=== PATIENT | male | born 1955 | race Caucasian/White ===

== ENCOUNTER → 2016-05-04 | Outpatient (CLI) | payer BC ==
[~2016-05-04] MED LIST: ALFU10TA30 PO; ALLO300T2 PO; ASPI81TA28 PO; ATOR-26 PO; CALC0.2510 PO; CLOP1TAB15 PO; DIOVAN; DVN/160 PO; METO25TA56 PO; NORVASC; NTRGSL/4 UT; OMEG10007 PO
[2016-05-04 09:35] LABS: BASO % 0.4 %; BASO ABS # 0.04 K/uL (0-0.2); COMPLETE YES; EOS % 6.2 %; HEMATOCRIT 43.6 % (42-52); IG% 0.1 %; LYMPH % 15.3 %; LYMPH ABS # 1.46 K/uL (1.2-3.4); MEAN CELL VOLUME 91.8 fL (80-100); MEAN CORPUSCULAR HEMOGLOBIN 31.8 pg (25-34); MEAN CORPUSCULAR HGB CONC 34.6 g/dl (32-36); MEAN PLATELET VOLUME 11.9 fL (7.4-10.4); PLATELET COUNT 219 K/uL (130-400); RED BLOOD COUNT 4.75 M/uL (4.7-6.1); WHITE BLOOD COUNT 9.53 K/uL (4.8-10.8)
[2016-05-04 09:57] LABS: ALT/SGPT 24 U/L (12-78); AST/SGOT 17 U/L (15-37); BLOOD UREA NITROGEN 40 mg/dl (7-18); BUN/CREATININE RATIO 10.6 (10-20); CARBON DIOXIDE 27 mmol/L (21-32); CHLORIDE 104 mmol/L (98-107); CHOLESTEROL 128 mg/dl (0-200); GLUCOSE 91 mg/dl (70-99); POTASSIUM 3.8 mmol/L (3.5-5.1); SODIUM 139 mmol/L (136-145); TRIGLYCERIDES 67 mg/dl (0-150); VERY LOW DENSITY LIPOPROT CALC 13 mg/dl
[2016-05-04 10:05] LABS: ESTIMATED AVERAGE GLUCOSE 114 mg/dl; HA1C FLAG Normal (Normal)
[2016-05-04 10:07] LABS: CHOLESTEROL/HDL RATIO 3.1; HDL CHOLESTEROL 41 mg/dl; LDL CHOLESTEROL CALCULATED 74 mg/dl
[2016-05-04 10:42] LABS: RATIO 1265.2 mcg/mg (0-30.0)
--- NOTE | 2016-05-12 11:33 | CODING QUERY MEDICAL NECESSITY ---
CQSUPPORTING DIAGNOSIS NEEDED A supporting diagnosis is required for the test/procedure performed on this patient in order for us to be reimbursed by the patient's insurance. Please provide a supporting diagnosis for the following test/procedure listed below next to the test name along with your signature. *If there is no additional diagnosis for this patient that would support the following test/procedure please document that below next to the test/procedure. Test(s)/Procedure(s) that require a supporting diagnosis: DOS 05/04/16 GLYCATED HEMOGLOBIN TEST PROSTATE SPECIFIC TEST (PSA) Provider Signature: Date: Thank you Mallory Dhaliwal Health Information Management Once completed, please kindly fax back to [phone] For questions please call [phone]
== END | disposition home or self-care (01) ==
LOC: C.LAB1850 07:12
PROVIDERS: ATTEND Internal Medicine
DX: Z12.5 Encounter for screening for malignant neoplasm of prostate (principal); E78.00 Pure hypercholesterolemia, unspecified; E74.39 Other disorders of intestinal carbohydrate absorption

== ENCOUNTER → 2016-11-15 | Outpatient (CLI) | payer BC, OTHER ==
[~2016-11-15] MED LIST changes: +REGADENOSON 0.4 MG/5 ML SYR ONE
--- NOTE | 2016-11-16 03:18 | MYOCARDIAL PERFUSION SCAN ---
ONE-DAY NUCLEAR MEDICINE TECHNETIUM-99M CARDIOLITE MYOCARDIAL PERFUSION SCAN CLINICAL HISTORY: The patient has a known history of coronary artery disease, having undergone placement of a stent in the LAD in May 2016. This stress test is being performed as a prerenal transplant evaluation. COMPARISON: None. TECHNIQUE: For the stress portion of the study, 32.3 mCi of Technetium 99 m Cardiolite IV was injected at 11:25 a.m. on 11/15/2016. Thirty minutes following the injection, imaging of the heart was performed in multiple projection. For the rest portion of the study, 10.7 mCi of Technetium 99 m Cardiolite was injected IV at 9:40 a.m. One hour following the injection, imaging of the heart was performed in the same projections. For the stress portion of the study, 0.4 mg of Lexiscan was injected intravenously as per protocol. The patient did not experience chest discomfort. Baseline EKG noted normal sinus rhythm without abnormalities. There were no ST segment changes seen during the infusion. Following the study, patient was hemodynamically stable without complaints. FINDINGS: The short axis, vertical long axis, and horizontal long axis images were reviewed in detail. There is normal tracer uptake at both stress and rest. This excludes a prior myocardial infarction and stress induced myocardial ischemia. The left ventricle demonstrates hyperdynamic systolic function without wall motion abnormalities. The left ventricular ejection fraction is 72%. IMPRESSION: 1. No scintigraphic evidence of a prior myocardial infarction or stress induced myocardial ischemia. 2. No Lexiscan induced chest pain. 3. No Lexiscan induced EKG changes. 4. Hyperdynamic left ventricular ejection fraction without wall motion abnormality. Left ventricular ejection fraction is 72%.
== END | disposition home or self-care (01) ==
LOC: C.NUCL 09:07
PROVIDERS: ATTEND Transplant Surgery
DX: N18.4 Chronic kidney disease, stage 4 (severe) (principal)

== ENCOUNTER → 2017-06-14 | Day surgery (SDC) | payer OTHER ==
[2017-06-07 10:41] VITALS: Ht 190.5 cm; Wt 100.0 kg
[~2017-06-14] VITALS: Ht 190.5 cm; Wt 100.0 kg
[~2017-06-14] MED LIST changes: +ALFU10TA2 PO; -ALFU10TA30 PO; +ASPCH81X PO; -ASPI81TA28 PO; -DIOVAN; +LIDOCAINE HCL 2% 2 ML VIAL (20MG/ML) ONE; -NORVASC; +PROPOFOL IV EMULSION 10 MG/ML 20 ML VIAL IV ONE; -REGADENOSON 0.4 MG/5 ML SYR ONE
--- NOTE | 2017-06-14 13:04 | Endo History and Physical ---
History & Physical Date of Service: Jun 14, 2017. Chief Complaint: history of polyps Referring Physician: Dr.Peter Kendrick History of Present Illness For Colonoscopy Past Surgical History Hx Cardiac Surgery: Yes (CARDIAC CATH 1 STENT-06/14/16) Hx Internal Defibrillator: No Hx Pacemaker: No Hx Abdominal Surgery: No Hx of Implantable Prosthesis: No Hx Post-Op Nausea and Vomiting: No Hx Cancer Surgery: Yes (SKIN EXCISION ON BACK) Hx Thoracic Surgery: No Hx Orthopedic: Yes (LEFT EHSAN) Hx Urinary Tract Surgery: No Family History None Social History Smoking Status: Never Smoker Hx Substance Use: No Hx Alcohol Use: No Allergies Coded Allergies: Gluten (Verified Allergy, Unknown, GLUTEN INTOLERANCE-GI UPSET, 06/07/17) NO KNOWN DRUG ALLERGIES (Verified Allergy, Unknown, NONE, 06/07/17) Current Medications Reported Home Medications Medications Dose Route/Sig Max Daily Dose Days Date Category Dose Instructions Aspirin Chewable (Aspirin) 81 Mg Chew 81 Mg PO QAM 06/07/17 Reported Nitrostat (Nitroglycerin) 0.4 Mg Tab 0.4 Mg UT PRN 11/18/16 Reported Diovan (Valsartan) 160 Mg Tab 160 Mg PO QPM 11/18/16 Reported Lopressor (Metoprolol Tartrate) 25 Mg Tab 25 Mg PO HS 11/18/16 Reported [place]-3 (Fish Oil) 1 Ea Cap 1 Cap PO QAM 11/18/16 Reported Plavix (Clopidogrel Bisulfate) 75 Mg Tab 75 Mg PO QAM 11/18/16 Reported Rocaltrol Cap (Calcitriol) 0.25 Mcg Cap 0.25 Mcg PO 5XWEEK 11/18/16 Reported MONDAY THRU MONDAY AM Lipitor (Atorvastatin Calcium) 80 Mg Tab 80 Mg PO HS 11/18/16 Reported Zyloprim (Allopurinol) 300 Mg Tab 300 Mg PO QAM 11/18/16 Reported Uroxatral (Alfuzosin HCl) 10 Mg Tab 10 Mg PO QPM 11/18/16 Reported Vital Signs Weight (Kilograms): 100 Height (Feet): 6 Height (Inches): 3 Date Time Temp Pulse Resp B/P (MAP) Pulse Ox O2 Delivery O2 Flow Rate FiO2 06/14/17 12:17 36.5 65 16 159/87 (111) 99 Room Air Physical Exam General Appearance: WD/WN Respiratory/Chest: Respiratory effort: no dyspnea Cardiovascular: Heart Auscultation: RRR Abdomen: Inspection & Palpation: soft Assessment and Plan Hx of polyps for colonoscopy
--- NOTE | 2017-06-14 13:29 | Discharge Instructions ---
Endoscopy Patient Instructions Date / Procedure(s) Performed Jun 14, 2017. Colonoscopy Allergy Information Coded Allergies: Gluten (Verified Allergy, Unknown, GLUTEN INTOLERANCE-GI UPSET, 06/07/17) NO KNOWN DRUG ALLERGIES (Verified Allergy, Unknown, NONE, 06/07/17) Discharge Date / Findings Jun 14, 2017. Diverticulosis, hemorrhoids Medication Instructions Stopped Medication(s): last dose Plavix monday,last ASA yesterday Restart Stopped Medication(s): Resume meds Reported Home Medications Medications Dose Route/Sig Max Daily Dose Days Date Category Dose Instructions Aspirin Chewable (Aspirin) 81 Mg Chew 81 Mg PO QAM 06/07/17 Reported Nitrostat (Nitroglycerin) 0.4 Mg Tab 0.4 Mg UT PRN 11/18/16 Reported Diovan (Valsartan) 160 Mg Tab 160 Mg PO QPM 11/18/16 Reported Lopressor (Metoprolol Tartrate) 25 Mg Tab 25 Mg PO HS 11/18/16 Reported [place]-3 (Fish Oil) 1 Ea Cap 1 Cap PO QAM 11/18/16 Reported Plavix (Clopidogrel Bisulfate) 75 Mg Tab 75 Mg PO QAM 11/18/16 Reported Rocaltrol Cap (Calcitriol) 0.25 Mcg Cap 0.25 Mcg PO 5XWEEK 11/18/16 Reported MONDAY THRU MONDAY AM Lipitor (Atorvastatin Calcium) 80 Mg Tab 80 Mg PO HS 11/18/16 Reported Zyloprim (Allopurinol) 300 Mg Tab 300 Mg PO QAM 11/18/16 Reported Uroxatral (Alfuzosin HCl) 10 Mg Tab 10 Mg PO QPM 11/18/16 Reported Provider Instructions Activity Restrictions - No exercising or heavy lifting for 24 hours. - Do not drink alcohol the day of the procedure. - Do not drive a car or operate machinery until the day after the procedure. - Do not make any important decisions or sign important papers in 24 hours after the procedure. Following Day: - Return to full activity which may include returning to work/school. Diet Start your diet with liquids and light foods (jello, soup, juice, toast). Then eat your usual diet if not nauseated. Treatment For Common After Affects For mild abdominal pain, bloating, or excessive gas: - Rest - Eat lightly - Lie on right side Follow-Up Information Follow-up with Dr.Peter Kendrick as scheduled Anesthesia Information What You Should Know You have had a procedure that required some medicine to reduce anxiety and discomfort. This treatment is called moderate sedation. After receiving the treatment, you may be sleepy, but you will be able to breathe on your own. The effects of the treatment may last for several hours. Follow these instructions along with Activity/Diet recommendations noted above: * Do NOT do anything where dizziness or clumsiness would be dangerous. * Rest quietly at home today, then you can be up and about tomorrow. * Have a responsible person stay with you the rest of today. * You may have had an I.V. today. If so, you may take the dressing off later today. Recommendations Call your doctor if: * Trouble breathing * Continuous vomiting for more than 24 hours * Temperature above 101 degrees * Severe abdominal pain or bloating * Pain not relieved by pain medicine ordered * There is increased drainage or redness from any incision * A large amount of rectal bleeding greater than 2-3 tablespoons. (If you had a polyp/s removed or have hemorrhoids, a small amount of blood - from the rectum is to be expected.) * You have any unanswered questions or concerns. IN THE EVENT OF A SERIOUS EMERGENCY, GO TO THE NEAREST EMERGENCY ROOM Your discharge instructions were prepared by provider Shailesh Lugo. Patient Instructions Signature Page Rommel Le Patient (or Guardian) Signature/Date: I have read and understand the instructions given to me by my caregivers. Caregiver/RN/Doctor Signature/Date: The above-named patient and/or guardian has received patient instructions on this date. + Original Patient Signature Page (only) stays with chart. Please make copy for patient.
--- NOTE | 2017-06-14 13:32 | GI REPORT ---
Procedure Date: 06/14/2017 1:07 PM Procedure: Colonoscopy Indications: Personal history of colonic polyps Medicines: Propofol total dose 220 mg IV, Lidocaine 40 mg IV Complications: No immediate complications. Estimated Blood Loss: Estimated blood loss: none. Procedure: Pre-Anesthesia Assessment: - Prior to the procedure, a History and Physical was performed, and patient medications, allergies and sensitivities were reviewed. The patient's tolerance of previous anesthesia was reviewed. - The risks and benefits of the procedure and the sedation options and risks were discussed with the patient. All questions were answered and informed consent was obtained. After I obtained informed consent, the scope was passed under direct vision. Throughout the procedure, the patient's blood pressure, pulse, and oxygen saturations were monitored continuously. The scope was introduced through the anus and advanced to the cecum, identified by appendiceal orifice and ileocecal valve. The colonoscopy was performed without difficulty. The patient tolerated the procedure well. The quality of the bowel preparation was good. Findings: Multiple small-mouthed diverticula were found in the sigmoid colon and ascending colon. Non-bleeding internal hemorrhoids were found during endoscopy. The hemorrhoids were moderate. Impression: - Diverticulosis in the sigmoid colon and in the ascending colon. - Non-bleeding internal hemorrhoids. - No specimens collected. Recommendation: - Discharge patient to home (ambulatory). - Continue present medications. - Repeat colonoscopy in 5 years for surveillance. - Return to primary care physician PRN. Shailesh Lugo M.D. Shailesh Lugo MD 06/14/2017 1:32:27 PM This report has been signed electronically. Note Initiated On: 06/14/2017 1:07 PM I attest to the content of the Intraoperative Record and orders documented therein, exceptions below
[2017-06-14 14:03] VITALS: BP 136/79; PULSE 56; O2SAT 98
--- NOTE | 2017-06-14 14:12 | Anesthesiology Progress Note ---
Anesthesia Post Op Note Date & Time Jun 14, 2017 at 14:12 Vital Signs Pain Intensity: 0 Vital Signs Past 12 Hours Date Time Temp Pulse Resp B/P (MAP) Pulse Ox O2 Delivery O2 Flow Rate FiO2 06/14/17 14:03 56 18 136/79 (98) 98 Room Air 06/14/17 13:55 58 16 159/95 (116) 100 Room Air 06/14/17 13:32 62 16 148/80 (102) 98 Room Air 06/14/17 12:17 36.5 65 16 159/87 (111) 99 Room Air Notes Mental Status: alert / awake / arousable, participated in evaluation Pt Amnestic to Procedure: Yes Nausea / Vomiting: adequately controlled Pain: adequately controlled Airway Patency, RR, SpO2: stable & adequate BP & HR: stable & adequate Hydration State: stable & adequate Anesthetic Complications: no major complications apparent
== END | disposition home or self-care (01) ==
LOC: C.GI 11:54
PROVIDERS: ATTEND Internal Medicine Gastroenterology
DX: Z86.010 Personal history of colon polyps (principal); K57.30 Diverticulosis of large intestine without perforation or abscess without bleeding; K64.8 Other hemorrhoids; K22.70 Barrett's esophagus without dysplasia; K21.9 Gastro-esophageal reflux disease without esophagitis; K50.90 Crohn's disease, unspecified, without complications; N18.4 Chronic kidney disease, stage 4 (severe); I12.9 Hypertensive chronic kidney disease with stage 1 through stage 4 chronic kidney disease, or unspecified chronic kidney disease; Z95.5 Presence of coronary angioplasty implant and graft; Z96.642 Presence of left artificial hip joint; Z85.828 Personal history of other malignant neoplasm of skin; Z91.048 Other nonmedicinal substance allergy status; Z79.82 Long term (current) use of aspirin; Z79.899 Other long term (current) drug therapy; Z79.02 Long term (current) use of antithrombotics/antiplatelets